=== PATIENT | female | born 1930 | race Caucasian/White ===

== ENCOUNTER 2017-10-13 13:13 | Emergency (ER) | payer OTHER ==
[~2017-10-13] VITALS: Ht 160 cm; Wt 61.2 kg
[~2017-10-13 13:13] MED LIST: ADULT LOW DOSE81 MG PO; ATENOLOL 25 MG25 M1 PG; CALCIUM 600 +1 EAC1 PO; DIOVAN; DIOVAN320 MG PO; DIOVAN40 MG PO; FISH OIL 1,0001 EAC5 PO; KEFLEX250 MG PO; LOW DOSE ASPIRI81 M1; MECLIZINE HCL12.5 MG PO; MINIPRIN81 MG PO; MULTIVITAMINS PO; NORCO 5-325 TA1 EACH PO; NORVASC 5 MG TAB5 MG PO; PENICILLIN V P500 MG PO; PRAVACHOL80 MG PO; PRAVASTATIN SOD80 MG PO; TRICOR145 MG PO; TUMS PO; VITAMIN D1000 UNI1 PO; VITAMIN E400 UNIT PO
[2017-10-13] MEDS ORDERED: KEFLEX500 M1 PO (16:14)
[2017-10-13 17:10] VITALS: BP 111/54
== END 2017-10-13 17:10 | disposition home or self-care (01) ==
LOC: ER 13:13
DX: S01.01XA Laceration without foreign body of scalp, initial encounter (principal); I10 Essential (primary) hypertension; F41.9 Anxiety disorder, unspecified; Z91.018 Allergy to other foods; W01.190A Fall on same level from slipping, tripping and stumbling with subsequent striking against furniture, initial encounter; Y93.89 Activity, other specified; Y92.89 Other specified places as the place of occurrence of the external cause; Y99.8 Other external cause status

== ENCOUNTER 2019-01-21 14:07 | Inpatient (IN) | payer OTHER ==
[~2019-01-21] VITALS: Ht 157.5 cm; Wt 49.6 kg
[~2019-01-21 14:07] MED LIST changes: +CHILDREN'S ASPI81 M1 PO; +KEFLEX500 M1 PO; -MINIPRIN81 MG PO
[2019-01-21 14:08] VITALS: BP 120/77
[2019-01-21 14:27] LABS: ABSOLUTE NEUTROPHILS 3.9 thou/uL (1.4-8.2); BASOPHILS 0.7 % (0.0-2.0); HEMATOCRIT 41.8 % (37.0-47.0); HEMOGLOBIN 13.8 gm/dL (12.0-15.0); LYMPHOCYTES 7.9 % (24.0-44.0); MCH 30.8 pg (26.0-34.0); MCV 93.4 fL (80.0-100.0); MONOCYTES 6.7 % (1.0-8.0); PLATELET COUNT 180 thou/uL (150-400); POLYS 84.7 % (36.0-66.0); RBC 4.48 mil/uL (4.20-5.00); RDW 14.5 % (10.5-14.5); WBC 4.6 thou/uL (4.0-11.0)
[2019-01-21 14:34] LABS: URINE BILIRUBIN NEGATIVE (Negative); URINE BLOOD 3+ (Negative); URINE COLOR YELLOW; URINE GLUCOSE-RANDOM* NEGATIVE (Negative); URINE KETONES NEGATIVE (Negative); URINE NITRITE-REFLEX NEGATIVE (Negative); URINE PROTEIN (DIPSTICK) 2+ (Negative); URINE SPECIFIC GRAVITY 1.025 (1.005-1.035)
[2019-01-21 14:35] LABS: CALCIUM 8.5 mg/dL (8.5-10.1); CREATININE 0.7 mg/dL (0.6-1.0); POTASSIUM 3.6 mmol/L (3.5-5.1)
[2019-01-21 14:38] LABS: URINE CLARITY CLOUDY; URINE LEUKOCYTES-REFLEX 3+ (Negative)
[2019-01-21 14:43] LABS: BACTERIA-REFLEX >30 Many /HPF (None Seen); CASTS None Seen /LPF (None Seen); SQUAMOUS 0-3 Few /LPF (0-3); URINE WBC-REFLEX >25 Many /HPF (0-5)
[2019-01-21 14:44] LABS: CRYSTALS None Seen /LPF (None Seen)
[2019-01-21] MEDS ORDERED: LIPITOR 20 MG T20 M1 PO (14:50)
[2019-01-21] MEDS ORDERED: AMLODIPINE BESY10 MG PO (14:50)
[2019-01-21] MEDS ORDERED: COLACE100 MG PO (14:56)
[2019-01-21 16:10] VITALS: BP 178/99
[2019-01-21 16:38] LABS: TSH 0.787 uIU/mL (0.358-3.740)
[2019-01-21 16:44] VITALS: BP 137/77
[2019-01-21 17:21] VITALS: BP 153/83
--- NOTE | 2019-01-21 17:32 | EKG ---
[address] [employer] [place] [address] ELECTROCARDIOGRAM REPORT Name: PATRICIA DOUGHERTY Room #: 430-P ADM IN M.R.#: [id number] ������������������ Admission: 01/21/19 ������������������ Attend Phys: Aysha Dietrich Discharge: ������������������ Date of : 34 Report #: [id number] ����������������������������������������������������������������� [id number] THIS REPORT FOR: //name// [facility] ED Test Date: 2019-01-21 Test Time: 14:35:01 Pat Name: PATRICIA DOUGHERTY Department: Room: 430 Gender: F Records Custodian: SUJATA : 1930 Requested By: Yovana Escobar Order Number: [id number] MD: Erik Woo Measurements Intervals [place] Rate: 76 P: 33 ND: 161 QRS: 14 QRSD: 121 T: -60 QT: 404 QTc: 455 Interpretive Statements Sinus rhythm Left bundle branch block Compared to ECG 08/07/2011 10:25:49 Left bundle-branch block now present Left-axis deviation no longer present Right bundle-branch block no longer present Electronically Signed On 01-21-2019 17:32:06 CDT by Erik Woo [email or web address] ��������������������������������������������� <ELECTRONICALLY SIGNED> ���������������������������������������� By: Erik Woo MD, FACC ��������������������������������������������� 01/21/19 1732 1435 1435 Erik Woo MD, [facility] /EPI
--- NOTE | 2019-01-22 03:44 | NUR ---
ASSUMED PT CARE 1900. PT ALERT TO SELF. FALL RISK PRECAUTIONS IN PLACE. REASSESSMENT COMPLETED. FREQUENT ROUNDING AND BED CHANGES. IV DRESSING C/D/I, NO SIGNS OF INFILTRATION. WILL CONTINUE POC UNTIL EOS.
[2019-01-22 05:50] LABS: ALBUMIN 2.5 g/dL (3.4-5.0); CALCIUM 7.4 mg/dL (8.5-10.1); CREATININE 0.5 mg/dL (0.6-1.0); PHOSPHORUS 2.5 mg/dL (2.5-4.9); POTASSIUM 3.2 mmol/L (3.5-5.1)
[2019-01-22 06:00] VITALS: BP 137/63
[2019-01-22 08:36] VITALS: BP 141/55
--- NOTE | 2019-01-22 12:49 | NUR ---
INITIAL ASSESSMENT: Pt evaluated for d/c planning needs. Reviewed chart and spoke with nurse, pt and spouse. Pt was living in house with spouse prior to admission. According to spouse, pt uses no DME and has not had home health. Pt has history of dementia. Spouse said pt has had several falls. Pt has daughter living in area. Pt and spouse plan on pt returning home on d/c from hospital. Pt may benefit from home health services.
--- NOTE | 2019-01-22 13:27 | NUR ---
PT A&O TO SELF, IV INTACT IN R AC. PT IS IMPULSIVE AND DOES NOT CALL FOR ASSIST. MAX ASSIST TO TRANFER WITH PT TO CHAIR. SPOUSE AT BEDSIDE.
--- NOTE | 2019-01-22 15:20 | NUR ---
PT HAIR MATTED WITH DRIED OLD FOOD, SO MUCH THAT SPOUSE REQUESTED IT TO BE CUT OUT. HE STATED THAT SHE WESLEY HER HAIR TO TRICIA GIL WHO REPLIED SHE DOES NOT COMB HER HAIR, PT'S SPOUSE STATED THAT IT WAS NOT IMPORTANT. AID AND STUDENT NURSES CLEANSED HAIR AND COMBED OUT TWO HANDFULS OF HAIR. PT ALSO SMELLS OF OLD URINE. THIS PT CLEARLY HAS VERY POOR HYGIENE AND UNABLE TO TAKE CARE OF SELF.
[2019-01-22 16:32] VITALS: BP 134/64
[2019-01-22 19:21] VITALS: BP 136/62
--- NOTE | 2019-01-23 02:47 | NUR ---
ASSUMED PT CARE 1900. PT ALERT TO SELF. IV DRESSING C/D/I, NO SIGNS OF INFILTRATION. REASSESSMENT COMPLETE. VSS. FALL RISK PRECAUTIONS IN PLACE. FREQUENT ROUNDING ON PATIENT. WILL CONTINUE POC UNTIL EOS.
[2019-01-23 05:02] VITALS: BP 141/47
[2019-01-23 05:31] LABS: CALCIUM 7.7 mg/dL (8.5-10.1); CREATININE 0.5 mg/dL (0.6-1.0); POTASSIUM 3.3 mmol/L (3.5-5.1)
[2019-01-23 08:32] VITALS: BP 153/77
--- NOTE | 2019-01-23 11:00 | NUR ---
PT A&OX1, IV INUSING NS@100/HR IN R AC, TRANSFERS WITH MAX ASSIST OF PT. REQIRES TO BE FED. INCONT OF BLADDER. MEDS GIVEN WITH FOOD. WILL CONT POC.
--- NOTE | 2019-01-23 16:40 | NUR ---
FAXED REFERRAL TO LEFT MSG WITH CE IN ADM. THAT IF THEY CAN ACCEPT PT. TO SUBMIT FOR AUTH. DCP TO FOLLOW.
[2019-01-23 17:00] VITALS: BP 134/96
[2019-01-23 20:41] VITALS: BP 128/48
--- NOTE | 2019-01-24 03:28 | NUR ---
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
[2019-01-24 04:39] VITALS: BP 141/53
[2019-01-24 07:00] VITALS: BP 127/97
[2019-01-24] MEDS ORDERED: CEFUROXIME250 MG PO (09:36)
[2019-01-24] MEDS ORDERED: ACETAMINOPHEN325 M1 PO (09:37)
[2019-01-24] MEDS ORDERED: B12INJ SUBQ (09:40)
[2019-01-24 17:24] VITALS: BP 140/68
--- NOTE | 2019-01-24 18:00 | NUR ---
ASSUMED CARE OF PT AT 0700. ASSESSMENT COMPLETED. HX DEMENTIA, DISORIENTED TO PERSON, PLACE, TIME, AND SITUATION. NONVERBAL AT BASELINE, DOES NOT FOLLOW COMMANDS. FEEDER AT MEALTIMES. AT BEDSIDE. WILL CONTINUE TO MONITOR.
== END 2019-01-24 18:35 | DRG 91 ==
LOC: ER 14:07 → 4E 15:56 → EROBS 15:56 → 4E 16:38
PROVIDERS: Student in an Organized Health Care Education/Training Program; ADMIT Hospitalist
DX: G92 Toxic encephalopathy (principal); E43 Unspecified severe protein-calorie malnutrition; N39.0 Urinary tract infection, site not specified; G93.40 Encephalopathy, unspecified; E46 Unspecified protein-calorie malnutrition; R29.6 Repeated falls; I10 Essential (primary) hypertension; F41.9 Anxiety disorder, unspecified; S09.90XA Unspecified injury of head, initial encounter; E53.8 Deficiency of other specified B group vitamins; F03.90 Unspecified dementia, unspecified severity, without behavioral disturbance, psychotic disturbance, mood disturbance, and anxiety; M62.84 Sarcopenia; E87.6 Hypokalemia; E78.5 Hyperlipidemia, unspecified; Z79.82 Long term (current) use of aspirin; Z79.899 Other long term (current) drug therapy; Z90.13 Acquired absence of bilateral breasts and nipples; Z95.0 Presence of cardiac pacemaker; W18.39XA Other fall on same level, initial encounter; Y93.89 Activity, other specified; Y92.89 Other specified places as the place of occurrence of the external cause; Y99.8 Other external cause status; Z68.20 Body mass index [BMI] 20.0-20.9, adult
CPT/HCPCS: 10084

== ENCOUNTER 2019-09-26 07:56 | Inpatient (IN) | payer OTHER ==
[~2019-09-26] VITALS: Ht 160 cm; Wt 47.2 kg
[~2019-09-26 07:56] MED LIST changes: +ACETAMINOPHEN325 M1 PO; +AMLODIPINE BESY10 MG PO; +B12INJ SUBQ; +CEFUROXIME250 MG PO; +COLACE100 MG PO; +LIPITOR 20 MG T20 M1 PO
[2019-09-26 08:29] LABS: URINE BILIRUBIN NEGATIVE (Negative); URINE BLOOD TRACE (Negative); URINE CLARITY CLOUDY; URINE COLOR YELLOW; URINE GLUCOSE-RANDOM* NEGATIVE (Negative); URINE KETONES NEGATIVE (Negative); URINE PROTEIN (DIPSTICK) TRACE (Negative); URINE SPECIFIC GRAVITY 1.015 (1.005-1.035); URINE UROBILINOGEN 0.2 E.U./dl (0.2-1.0)
[2019-09-26 08:31] LABS: URINE LEUKOCYTES-REFLEX 2+ (Negative); URINE NITRITE-REFLEX POSITIVE (Negative)
[2019-09-26 08:34] LABS: ABSOLUTE NEUTROPHILS 5.1 thou/uL (1.4-8.2); BASOPHILS 0.6 % (0.0-2.0); EOSINOPHILS 2.7 % (0.0-3.0); HEMATOCRIT 41.4 % (37.0-47.0); HEMOGLOBIN 13.4 gm/dL (12.0-15.0); MCH 31.1 pg (26.0-34.0); MCHC 32.3 g/dL (28.0-37.0); MCV 96.2 fL (80.0-100.0); MONOCYTES 5.9 % (1.0-8.0); PLATELET COUNT 216 thou/uL (150-400); POLYS 75.8 % (36.0-66.0); RDW 14.2 % (10.5-14.5); WBC 6.8 thou/uL (4.0-11.0)
[2019-09-26] MEDS ORDERED: SENNA PLUS TAB1 EACH PO (08:35)
[2019-09-26 08:40] LABS: MUCUS 0-3 Light strn/LPF (None Seen); SQUAMOUS 0-3 Few /LPF (0-3)
[2019-09-26 08:41] LABS: BACTERIA-REFLEX >30 Many /HPF (None Seen); CALCIUM 9.5 mg/dL (8.5-10.1); CREATININE 0.7 mg/dL (0.6-1.0); CRYSTALS None Seen /LPF (None Seen); POTASSIUM 4.3 mmol/L (3.5-5.1); URINE WBC-REFLEX >25 Many /HPF (0-5)
[2019-09-26 08:42] LABS: CASTS None Seen /LPF (None Seen); URINE RBC 0-2 Rare /HPF (0-2)
[2019-09-26 09:56] VITALS: BP 174/91
--- NOTE | 2019-09-26 10:40 | NUR ---
REPORT CALLED TO FLOOR RN
[2019-09-26 13:09] VITALS: BP 103/60
[2019-09-26 15:11] LABS: TSH 1.876 uIU/mL (0.358-3.740)
[2019-09-26 15:43] VITALS: BP 184/161
--- NOTE | 2019-09-26 16:12 | EKG ---
[place] [address] [facility] [place] [address] ELECTROCARDIOGRAM REPORT Name: PATRICIA DOUGHERTY Room #: 436-P ADM IN M.R.#: [id number] Admission: 09/26/19 Attend Phys: Matilda Cadena MD Discharge: Date of : 34 Report #: [id number] THIS REPORT FOR: //name// [facility] ED Test Date: 2019-09-26 Test Time: 08:29:25 Pat Name: PATRICIA DOUGHERTY Department: Room: 436 Gender: F Paunch Trimmer: roman : 1930 Requested By: Steve Alexander Order Number: [id number] MD: Erik Woo Measurements Intervals [place] Rate: 83 P: HI: QRS: -66 QRSD: 167 T: 93 QT: 433 QTc: 509 Interpretive Statements Atrial-sensed ventricular-paced complexes No further analysis attempted due to paced rhythm Artifact in multiple lead(s) Compared to ECG 01/21/2019 14:35:01 Ventricular pacing is now present Electronically Signed On 09-26-2019 16:12:27 MAJOR GENERAL by Erik Woo [email or web address] <ELECTRONICALLY SIGNED> By: Erik Woo MD, [facility] 09/26/19 1612 0829 0829 Erik Woo MD, [facility] /EPI
[2019-09-26 20:02] VITALS: BP 184/161
--- NOTE | 2019-09-26 20:11 | NUR ---
PT. RECEIVED FROM ED APROX.1530. A&O TO SAGAR. AND DAUGHTER AT BEDSIDE. PT. HAS ADVANCED DEMENTIA AND MUMBLES WORDS. PT FIDGETS WITH GOWN AND IS IMPULSIVE. PT. IV IS R, AC SALINE LOCKED AND FLUSHES WELL. PT HAS L SIDE FORBIDEN DUE TO A DOUBLE MATECTOMY IN WITH LYMPHNODE REMOVAL OF THE L. SIDE. PT, IS A DNR AND ON HOSPICE AT HOME. PT FELL THIS MORNING AT HOME AND CALLED 911 SHE HAS A L. EAR LEASON AND GISELLE ON THE HEAD. PT HAS A PACED PACEMAKER. PT RECEIVES HYDRALIZINE IF OVER 170
[2019-09-26 20:15] VITALS: BP 117/47
[2019-09-27 00:15] VITALS: BP 130/49
--- NOTE | 2019-09-27 04:15 | NUR ---
PATIENT ALERT AND ORIENTED X1 AT TIMES. FAMILY AT BEDSIDE IN EARLY EVENING. BECAME RESTLESS AND GIVEN SEROQUEL X1 DURING THE NIGHT. NO S/S OF PAIN. INCONTINENT OF URINE - BARRIER CREAM USED, NO BREAKDOWN AT TIME OF NOTE, HOWEVER, REDNESS IS VISIBLE. RESTING QUIETLY. WILL MONITOR.
[2019-09-27 04:54] LABS: ABSOLUTE NEUTROPHILS 2.8 thou/uL (1.4-8.2); BASOPHILS 1.1 % (0.0-2.0); EOSINOPHILS 4.7 % (0.0-3.0); HEMOGLOBIN 12.6 gm/dL (12.0-15.0); LYMPHOCYTES 20.9 % (24.0-44.0); MCH 31.8 pg (26.0-34.0); MCV 96.3 fL (80.0-100.0); MONOCYTES 8.2 % (1.0-8.0); PLATELET COUNT 187 thou/uL (150-400); POLYS 65.1 % (36.0-66.0); RBC 3.95 mil/uL (4.20-5.00); RDW 14.4 % (10.5-14.5); WBC 4.2 thou/uL (4.0-11.0)
[2019-09-27 05:08] LABS: ALBUMIN 2.8 g/dL (3.4-5.0); CALCIUM 8.8 mg/dL (8.5-10.1); CREATININE 0.6 mg/dL (0.6-1.0); PHOSPHORUS 3.6 mg/dL (2.5-4.9); POTASSIUM 3.6 mmol/L (3.5-5.1); TOTAL BILIRUBIN 0.4 mg/dL (<0.1-1.0); TOTAL PROTEIN 6.3 g/dL (6.4-8.2)
[2019-09-27 07:19] VITALS: BP 136/47
[2019-09-27 15:58] VITALS: BP 148/69
--- NOTE | 2019-09-27 17:27 | NUR ---
ASSUMED CARE OF PATIENT AT 0715, PATIENT WAS WAKEN UP FOR BREAKFAST. NONVERBAL, BUT SMILES. NO S/S OF PAIN NOTED. VSS. PATIENT ALERT AND ORIENTED X 1, CAN BE ANXIOUS, BUT HAS BEEN CALM MOST OF THE SHIFT. DOUBLE MASECTOMY, LIMB ALERT, BUT CAN USE RIGHT ARM. PATIENT HAS RIGHT FOREARM IV, WRAPPED FOR PROTECTION. RECEIVED CALL FROM LEONARD MCCLELLAND, POSITIVE BLOOD CULTURES GRAM POSITIVE COCCI CONSISTED WITH STAPH SPECIES, THIS RN NOTIFIED DR ANAYA, SHE PUT ORDERS IN FOR VANCO IV X 1 DOSE. LOST OF BRUISING DUE TO FALL AT HOME. INCONTINENT OF B/B. HAS BEEN AT BEDSIDE THIS AFTERNOON. PATIENT IS A FEEDER, APPETITE IS OK. WILL CONTINUE TO MONITOR.
[2019-09-27 19:50] VITALS: BP 143/52
--- NOTE | 2019-09-28 04:56 | NUR ---
PATIENT ALERT AND ORIENTED TO SELF ONLY AT TIMES. COOPERATIVE WITH CARE. SOMEWHAT RESTLESS DURING THE NIGHT, EASILY REORIENTED AND QUIETED DOWN. IV ABX INFUSED W/O COMPLICATION. AT BEDSIDE IN EARLY EVENING. REPORTED TO HAVE A GOOD APPETITE DURING THE DAY 09/27/19. RESTING QUIETLY AT TIME OF NOTE. WILL MONITOR.
[2019-09-28 05:58] LABS: ABSOLUTE NEUTROPHILS 4.1 thou/uL (1.4-8.2); BASOPHILS 0.7 % (0.0-2.0); HEMATOCRIT 37.6 % (37.0-47.0); HEMOGLOBIN 12.3 gm/dL (12.0-15.0); LYMPHOCYTES 14.2 % (24.0-44.0); MCH 31.3 pg (26.0-34.0); MCHC 32.6 g/dL (28.0-37.0); MCV 96.1 fL (80.0-100.0); MONOCYTES 7.4 % (1.0-8.0); PLATELET COUNT 202 thou/uL (150-400); POLYS 73.7 % (36.0-66.0); RBC 3.91 mil/uL (4.20-5.00); RDW 14.3 % (10.5-14.5); WBC 5.6 thou/uL (4.0-11.0)
[2019-09-28 06:24] LABS: ALBUMIN 2.9 g/dL (3.4-5.0); CALCIUM 8.7 mg/dL (8.5-10.1); CREATININE 0.7 mg/dL (0.6-1.0); PHOSPHORUS 3.7 mg/dL (2.5-4.9); POTASSIUM 3.7 mmol/L (3.5-5.1); TOTAL BILIRUBIN 0.4 mg/dL (<0.1-1.0); TOTAL PROTEIN 6.3 g/dL (6.4-8.2)
[2019-09-28 08:44] VITALS: BP 138/52
--- NOTE | 2019-09-28 16:11 | NUR ---
PT A&O TO SELF. TRANSFERS WITH MAX ASSIST. IV INFILTRATED IN R AC. GISELLE ARE INTACT TO BACK OF HEAD. INCONT OF BLADDER. SPOUSE AT BEDSIDE. IV RESTARTED IN LELE BY IV TEAM. TOLERATING PO WELL. WILL CONT POC.
[2019-09-28 17:53] VITALS: BP 127/103
[2019-09-28 19:00] VITALS: BP 103/42
--- NOTE | 2019-09-29 00:33 | NUR ---
PT ALERT TO SELF.PER ,PT HAS NOT HAD A BM IN DAYS,PT WAS STARTED ON LACTULOSE AND SUPP.PT GOT FIRST DOSE OF LACTULOSE YESTERDAY.PT INCONT OF B&B,FLAQUITA CARE AND BARRIER CREAM WITH EACH INCONTINENCE.LIMB ALERT TO HER L ARM.PT HAS TWO GISELLE ON L SIDE OF HEAD,NO BLEEDING NOTED.PT REPOSITIONED WHILE IN BED.PT CALM AND NON VERBAL,FREQUENT CHECKS DONE.PT RESTING ON HER BED COMFORTABLY AT THIS TIME.FALL PRECATIONS IN PLACE,CALL LIGHT WITHIN REACH.
[2019-09-29 04:30] VITALS: BP 152/62
[2019-09-29 09:13] VITALS: BP 151/80
--- NOTE | 2019-09-29 10:32 | NUR ---
ASSUMED CARE OF PT AT 0700. PT IS VERY AGITATED AND TRIES TO GET OUT OF BED. FALL PRECAUTIONS ARE IN PLACE. PT IS GOING TO DO PT/ OT. PT IS VERY INCONTINENT AND HAS TO BE CHANGED CONSTANTLY. PT IS AWAKE AND VERY CONFUSED. LUNGS ARE CLEAR AND IV IS DRY AND INTACT. CALL LIGHT IS WITHIN REACH AND BED IS IN THE LOWEST POSITION. WILL CONTIUE TO MONITOR THE PT.
--- NOTE | 2019-09-29 13:12 | NUR ---
Assess due to pt with borderline low BMI 18.6. Admitted following fall, UTI. Pt with confusion, unable to answer questions. Spouse available-states appetite has been good, and prefers finger foods as limited ability to use utensils. No Code status and usually on hospice services at home. Wt fairly stable since 01/2019. Eating 50-100%. Physician has indicated protein calorie malnutrition: RD will defer. Low nutrition risk at this time
--- NOTE | 2019-09-29 14:56 | NUR ---
PT ADMITTED RELATED TO FALL, UTI. CM REVIEWED CHART AND SPOKE WITH CARE TEAM. CM MET WITH PT AT BEDSIDE THIS DAY. PT ISN'T ABLE TO ANSWER ASSESSMENT QUESTIONS. CM CALLED AND SPOKE WITH PT'S SPOUSE. HE INDICATED THAT PT RESIDES IN A HOUSE WITH HIS WITH A STAIRLIFT TO ENTER THROUGH THE GARAGE THEN ALL NEEDS ON 1 LEVEL. PT'S SPOUSE INDICATED THAT PT HAD BEEN AMBULATORY WITH OUT A GAIT AID BUT THAT SPOUSE PROVIDED SBA. PT'S PCP IS DR. SILVA. PT'S SPOUSE INDICATED THAT PT HAD BEEN ON SERVICE WITH [facility] IN THE PAST BUT THAT THEY HAD DISCHARGED PT THEY HAD BEEN GOING OUT TO EAT TWICE PER WEEK. SPOUSE INDICATED THAT HE WAS GOING TO BE MEETING WITH [facility] RIGHT BEFORE PT FELL AND WAS ADMITTED. PT IS RECEPTIVE TO POST ACUTE CARE STAY IF NEEDED OTHER BRAGA HE IS AGREEABLE WITH PT RETURNING HOME ONCE MEDICALLY STABLE.
[2019-09-29 17:29] VITALS: BP 124/58
[2019-09-29 21:19] VITALS: BP 122/46
--- NOTE | 2019-09-30 05:53 | NUR ---
PT PRESENTS ALERT TO SELF WITH BRIGHT AFFECT. PT OBSERVED EATING 100% OF MEALS WITH ABILITY TO FEED HERSELF. PT RESPONSES INCONGRUENT WITH PROMPTS. PT HAS NO REPORTS OR OBSERVATIONS OF PAIN, FLACC OF 0. PT RESTING WITHOUT INTERRUPTION THROUGHOUT SHIFT. PT CONTINUES ON VANCOMYCIN WITHOUT ADVERSE EFFECTS. PT ENCOURAGED TO USE CALL LIGHT TO NOTIFY STAFF OF ALL NEEDS. ROOM NEAR NURSES STATION, BED IN LOWEST POSITION, BED ALARM ON, CALL LIGHT WITHIN REACH. WILL CONTINUE TO MONITOR.
[2019-09-30 07:19] VITALS: BP 150/60
[2019-09-30] MEDS ORDERED: CEFUROXIME500 MG PO (10:03)
--- NOTE | 2019-09-30 11:31 | NUR ---
PT CARE ASSUMED 0700. A&O TO SELF. PT RESTLESS AND PLEASANT. DISCHARGE ORDERS IN PLACE AND AWAITING PLACEMENT. OT AND PT WORKED WITH PT. PT HAS HAD VANCO RE-TIMED DUE TO NOT RECEIVING 0400 DOSAGE. IV PATENT AND FLUSHED. PT. NEEDS ENCOURAGEMENT TO EAT AND DRINK OTHERWISE SHE WILL JUST PLAY WITH HER FOOD AND DRINKS. PT. IS INCONTINENT TO BOWELS AND URINE. CALL LIGHT IN REACH. BED LOCKED. PT ON FALL RISK PROTOCOL.
--- NOTE | 2019-09-30 15:40 | NUR ---
REFERRAL SENT TO [facility] FOR REVIEW FOR POST ACUTE CARE STAY.
[2019-09-30 16:20] VITALS: BP 146/72
--- NOTE | 2019-09-30 16:31 | NUR ---
FAXED REFERRAL TO [facility] SPOKE WITH CE IN ADM SHE RECEIVED REFERRAL AND CANNOT ACCEPT THEY CANNOT MEET HER NEEDS. DP TO FOLLOW.
[2019-09-30 19:40] VITALS: BP 131/99
--- NOTE | 2019-10-01 00:44 | NUR ---
ASSUMED CARE OF PATIENT AT SHIFT CHANGE. ASSESSMENT CHARTED. PRN SEROQUEL GIVEN FOR AGITATION ALONG W A BEDBATH AND THERAPEUTIC COMMUNICATION/MASSAGE. PATIENT IS RESTING QUIETLY WITH NATURE SOUNDS IN BACKGROUND. PATIENT IS BRING TURNED AND CHECKED Q2HRS. PATIENT GRIMACED A BIT WHEN TURNED AND CLEANED AT TIME OF CARE WHEN PRESSURE WAS APPLIED TO BACK. WILL CONTINUE TO REPOSITION. PATIENT IS GETTING IV ANTIBIOTICS. PATIENT HAS DISCHARGE ORDERS IN PLACE. PATIENT DENIES NEEDS AT THIS TIME. WILL CONTINUE TO MONITOR AND FOLLOW POC.
[2019-10-01 04:05] VITALS: BP 147/67
[2019-10-01 07:09] VITALS: BP 160/64
[2019-10-01 11:56] VITALS: BP 160/64
--- NOTE | 2019-10-01 12:11 | NUR ---
PT HAD BEEN RECEPTIVE TO SHORT TERM POST ACUTE CARE STAY AND ASKED THAT REFERRALS BE SENT TO [facility]. [facility] INDICATED THEY COULDN'T MEET PT'S NEEDS AND [facility] IS OUT OF NETWORK WITH PT'S INSURANCE. CM NOTIFIED SPOUSE AND HE ASKED IT PT COULD JUST RETURN HOME. HE INDICATED SHE WOULD LOOK AT [facility]. CM CALLED [facility] AND SPOKE WITH TOM SHE STATED THAT THEY HAD REFERRAL AND ORDERS AND WOULD BE ABLE TO INITIATE SERVICES UPON DC. CM HAD REACHED OUT TO NOTIFY SPOUSE AND ASK WHAT HOME HEALTH PROVIDER THEY WANTED TO USE. CM AWAITING RESPONSE. CARE TEAM AGREEABLE WITH PT DISCHARGING HOME THIS DAY WITH SPOUSE, [facility], AND HOME HEALTH.
[2019-10-01 13:24] VITALS: BP 160/64
[2019-10-01 13:29] VITALS: BP 160/64
--- NOTE | 2019-10-01 14:02 | NUR ---
DC ORDERS RECEIVED. IV REMOVED FROM R UA. DC INSTRUCTIONS, SCRIPTS AND F/U APPOINTMENT REVIEWED WITH PT. W/C VAN WILL MECHANICAL DRAFTER PT. [facility] HAS BEEN ORDERED FOR PATIENT. SPOUSE AT BEDSIDE.
[2019-10-01 14:33] VITALS: BP 160/64
--- NOTE | 2019-10-01 14:34 | NUR ---
FAXED DC ORDERS/SUMMARY TO [facility] SPOKE WITH REENA IN ADM SHE RECEIVED DC ORDERS AND WILL NOTIFY PT TIME OF VISITS. FAXED DC ORDERS/SUMMARY TO [facility] RECEIVED CONFIRMATION.
== END 2019-10-01 16:01 | disposition home or self-care (01) | DRG 853 ==
LOC: ER 07:56 → 4S 09:16 → EROBS 09:16 → 4S 10:27
PROVIDERS: Emergency Medicine; ADMIT Internal Medicine
PROC: 0JQ00ZZ Repair Scalp Subcutaneous Tissue and Fascia, Open Approach (ICD-10-PCS; principal; 2019-09-27)
DX: A41.9 Sepsis, unspecified organism (principal); G93.41 Metabolic encephalopathy; E43 Unspecified severe protein-calorie malnutrition; N39.0 Urinary tract infection, site not specified; Z68.1 Body mass index [BMI] 19.9 or less, adult; I10 Essential (primary) hypertension; F41.9 Anxiety disorder, unspecified; S01.01XA Laceration without foreign body of scalp, initial encounter; E78.5 Hyperlipidemia, unspecified; I16.0 Hypertensive urgency; E86.0 Dehydration; F03.90 Unspecified dementia, unspecified severity, without behavioral disturbance, psychotic disturbance, mood disturbance, and anxiety; E53.8 Deficiency of other specified B group vitamins; Z66 Do not resuscitate; K59.00 Constipation, unspecified; M85.80 Other specified disorders of bone density and structure, unspecified site; B96.20 Unspecified Escherichia coli [E. coli] as the cause of diseases classified elsewhere; Z90.13 Acquired absence of bilateral breasts and nipples; Z95.0 Presence of cardiac pacemaker; Z79.82 Long term (current) use of aspirin; Z79.899 Other long term (current) drug therapy; W18.39XA Other fall on same level, initial encounter; Y93.89 Activity, other specified; Y92.89 Other specified places as the place of occurrence of the external cause; Y99.8 Other external cause status
CPT/HCPCS: 10102